=== PATIENT | male | born 1945 | race Caucasian/White ===

== ENCOUNTER → 2018-11-24 | Outpatient (CLI) | payer OTHER ==
[~2018-11-24] MED LIST: ESOM20; METO25ER; OXYACE5T PO
== END | disposition home or self-care (01) ==
LOC: OLS 14:18 → LAB SHORT 14:18
DX: Z79.01 Long term (current) use of anticoagulants (principal); Z51.81 Encounter for therapeutic drug level monitoring; I48.91 Unspecified atrial fibrillation
CPT/HCPCS: 36416; 85610

== ENCOUNTER → 2021-04-04 | Outpatient (CLI) | payer OTHER | END | disposition home or self-care (01) | LOC: LAB SHORT 08:57 | DX: L98.9 Disorder of the skin and subcutaneous tissue, unspecified (principal) | CPT/HCPCS: 88305 ==

== ENCOUNTER 2022-01-18 09:48 | Day surgery (SDC) | payer OTHER ==
[~2022-01-18] VITALS: Ht 175.3 cm; Wt 78.4 kg
[~2022-01-18 09:48] MED LIST changes: +ATORVASTATIN CA20 MG PO; +FINA5 PO; +JANTOVEN5 M2 PO; +METO100ER PO; +OMEP20ER PO; +TAMSULOSIN HCL0.4 M1 PO; +VALSARTAN-HCTZ1 EAC7 PO
== END 2022-01-18 12:01 | disposition home or self-care (01) ==
LOC: ORSCSDS 09:48
PROVIDERS: Ophthalmology
PROC: 08DJ3ZZ Extraction of Right Lens, Percutaneous Approach (ICD-10-PCS; principal; 2022-01-18 11:00)
DX: H25.11 Age-related nuclear cataract, right eye (principal); I10 Essential (primary) hypertension; I48.91 Unspecified atrial fibrillation; K21.9 Gastro-esophageal reflux disease without esophagitis; I25.2 Old myocardial infarction; I25.10 Atherosclerotic heart disease of native coronary artery without angina pectoris; Z79.01 Long term (current) use of anticoagulants; Z79.899 Other long term (current) drug therapy
CPT/HCPCS: J2250; J3010; J3301; J7030; J7040; V2632

== ENCOUNTER 2022-01-25 09:38 | Day surgery (SDC) | payer OTHER ==
[~2022-01-25] VITALS: Ht 175.3 cm; Wt 77.8 kg
--- NOTE | 2022-01-25 10:05 | NUR ---
01/25/22 1005 ROSALBA POSADA T:[id number] P:[id number]
== END 2022-01-25 11:38 | disposition home or self-care (01) ==
LOC: ORSCSDS 09:38
PROVIDERS: Ophthalmology
PROC: 08RK3JZ Replacement of Left Lens with Synthetic Substitute, Percutaneous Approach (ICD-10-PCS; principal; 2022-01-25 11:00)
DX: H25.12 Age-related nuclear cataract, left eye (principal); H52.202 Unspecified astigmatism, left eye; I10 Essential (primary) hypertension; I25.2 Old myocardial infarction; I48.91 Unspecified atrial fibrillation; Z79.01 Long term (current) use of anticoagulants; E78.5 Hyperlipidemia, unspecified; K21.9 Gastro-esophageal reflux disease without esophagitis; N40.0 Benign prostatic hyperplasia without lower urinary tract symptoms; Z79.899 Other long term (current) drug therapy
CPT/HCPCS: J2001; J2250; J3010; J3301; J7120; V2632

== ENCOUNTER 2023-09-20 18:46 | Observation (INO) | payer OTHER ==
[~2023-09-20] VITALS: Ht 175.3 cm; Wt 80.7 kg
[2023-09-20] MEDS ORDERED: NS 1,000 ML IV SCH ×3 (18:55→23:10)
[2023-09-20 19:05] LABS: BASOPHILS ABSOLUTE AUTO 0.05 K/mm3 (0.00-0.23); BASOPHILS PERCENT AUTO 1 % (0-2); EOSINOPHILS ABSOLUTE AUTO 0.09 K/mm3 (0.00-0.68); EOSINOPHILS PERCENT AUTO 1 % (0-6); Hematocrit 35.3 % (37.0-53.0); Hemoglobin 12.3 g/dL (13.5-17.5); IMMATURE GRAN ABSOLUTE AUTO 0.02 K/mm3 (0.00-0.10); IMMATURE GRAN PERCENT AUTO 0 % (0-1); LYMPHOCYTES ABSOLUTE AUTO 2.59 K/mm3 (0.84-5.20); LYMPHOCYTES PERCENT AUTO 37 % (21-46); MONOCYTES ABSOLUTE AUTO 0.53 K/mm3 (0.16-1.47); MONOCYTES PERCENT AUTO 8 % (4-13); Mean Corpuscular HGB 28.7 pg (26.0-34.0); Mean Corpuscular HGB Conc 34.8 g/dL (31.5-36.5); Mean Corpuscular Volume 83 fL (80-100); Mean Platelet Volume 10.2 fL (9.1-12.4); NEUTROPHILS PERCENT AUTO 54 % (41-73); Platelet Count 207 K/mm3 (150-400); RDW Coefficient Variation 13.3 % (11.7-14.2); RDW Standard Deviation 40.3 fL (35.1-46.3); Red Blood Cell Count 4.28 M/mm3 (4.30-5.90); White Blood Cell Count 7.08 K/mm3 (4.00-11.30)
[2023-09-20 19:30] LABS: Albumin, Blood 3.1 g/dL (3.4-5.0); Bilirubin, Total 1.1 mg/dL (0.1-1.0); Bun/Creatinine Ratio 15.9 (12.0-20.0); Calcium, Blood 7.9 mg/dL (8.5-10.1); Creatinine, Blood 1.13 mg/dL (0.60-1.20); Potassium, Blood 2.3 mmol/L (3.5-5.5); Total Protein, Blood 6.1 g/dL (6.4-8.2)
[2023-09-20 19:57] LABS: Calcium, Ionized (POC) 1.05 mmol/L (1.10-1.46); Chloride (POC) 109 mmol/L (98-108); Creatinine (POC) 1.1 mg/dL (0.8-1.3); Glucose (ISTAT POC) 104 mg/dL (70-99); Hemoglobin (POC) 11.6 g/dL (13.5-17.5); Potassium (POC) 2.3 mmol/L (3.5-5.5); Sodium (POC) 144 mmol/L (135-148); Total CO2 (POC) 20 mmol/L (21-32)
[2023-09-20] MEDS ORDERED: Potassium Chl 20MEQ/Water100ML 100 ML IV SCH (20:05)
[2023-09-20] MEDS ORDERED: AMLO10 PO (21:47)
[2023-09-20] MEDS ORDERED: FINA5 PO (21:47)
[2023-09-20] MEDS ORDERED: COLE625 PO (21:48)
[2023-09-20] MEDS ORDERED: CEFD300 PO (21:49)
[2023-09-20] MEDS ORDERED: Ondansetron HCl 2 MG / ML 2ML Vial IV PRN (23:00)
[2023-09-20] MEDS ORDERED: Enoxaparin 40 MG/0.4 ML SYR SC SCH (23:00)
[2023-09-20] MEDS ORDERED: CALCIUM GLUC IN NACL, ISO-OSM 50 ML IV ONE (23:10)
[2023-09-20 23:27] VITALS: BP 130/72
[2023-09-20 23:46] LABS: Magnesium, Blood 1.7 mg/dL (1.6-2.4)
[2023-09-21 00:51] LABS: BASOPHILS ABSOLUTE AUTO 0.05 K/mm3 (0.00-0.23); BASOPHILS PERCENT AUTO 1 % (0-2); EOSINOPHILS ABSOLUTE AUTO 0.03 K/mm3 (0.00-0.68); EOSINOPHILS PERCENT AUTO 0 % (0-6); Hemoglobin 12.7 g/dL (13.5-17.5); IMMATURE GRAN ABSOLUTE AUTO 0.03 K/mm3 (0.00-0.10); IMMATURE GRAN PERCENT AUTO 0 % (0-1); LYMPHOCYTES ABSOLUTE AUTO 2.02 K/mm3 (0.84-5.20); LYMPHOCYTES PERCENT AUTO 22 % (21-46); MONOCYTES ABSOLUTE AUTO 0.73 K/mm3 (0.16-1.47); MONOCYTES PERCENT AUTO 8 % (4-13); Mean Corpuscular HGB 28.3 pg (26.0-34.0); Mean Corpuscular HGB Conc 34.3 g/dL (31.5-36.5); Mean Corpuscular Volume 82 fL (80-100); Mean Platelet Volume 10.4 fL (9.1-12.4); NEUTROPHILS ABSOLUTE AUTO 6.36 K/mm3 (1.96-9.15); NEUTROPHILS PERCENT AUTO 69 % (41-73); Platelet Count 212 K/mm3 (150-400); RDW Coefficient Variation 13.3 % (11.7-14.2); RDW Standard Deviation 40.3 fL (35.1-46.3); Red Blood Cell Count 4.49 M/mm3 (4.30-5.90); White Blood Cell Count 9.22 K/mm3 (4.00-11.30)
[2023-09-21 01:00] LABS: International Normalized Ratio 2.25; Prothrombin Time Results 22.7 Sec (9.7-11.5)
[2023-09-21 01:07] LABS: Albumin, Blood 3.4 g/dL (3.4-5.0); Albumin/Globulin Ratio 1.1 (0.8-1.8); Bilirubin, Total 1.7 mg/dL (0.1-1.0); Bun/Creatinine Ratio 16.6 (12.0-20.0); Calcium, Blood 8.1 mg/dL (8.5-10.1); Creatinine, Blood 0.91 mg/dL (0.60-1.20); Globulin, Blood 3.2 g/dL (2.2-4.0); Potassium, Blood 3.2 mmol/L (3.5-5.5); Total Protein, Blood 6.6 g/dL (6.4-8.2)
--- NOTE | 2023-09-21 01:37 | NUR ---
ASSUMED CARE OF PATIENT UPON HIS ARRIVAL FROM ED AT MIDNIGHT. A&O X 4, PLEASANT AND INDEPENDENT IN ROOM. DENIES PAIN, CP, DIZZINESS. POTASSIUM AND NS INFUSING INTO L ARM IV. EDUCATED PT ABOUT FALL PRECAUTIONS, HIGH RISK R/T SYNCOPAL EPISODE EARLIER, AND TO CALL IF HE FEELS IN ANY WAY UNSAFE TO AMBULATE, TO WHICH HE VERBALIZED UNDERSTANDING. ORIENTED TO ROOM, CALL LIGHT, UNIT ROUTINE, O2 SAFETY.
[2023-09-21 03:53] VITALS: BP 117/70
--- NOTE | 2023-09-21 05:39 | NUR ---
SHIFT SUMMARY: NO ACUTE EVENTS. NO EVENTS ON TELEMETRY, SR 70'S. COMPLETED ALL POTASSIUM INFUSIONS (TOTAL OF 60 MEQ) AND CALCIUM GLUCONATE. DENIED PAIN, CHEST DISCOMFORT, DIZZINESS, AND SOB. WAS EDUCATED ABOUT FALL PRECAUTIONS AND TO CHANGE HIS POSITION SLOWLY WHEN GETTING UP AND IF HE FELT DIZZY TO CALL STAFF FOR ASSISTANCE; VERBALIZED UNDERSTANDING OF ALL. AMBULATED TO WITH STEADY GAIT. IS HOPING TO D/C HOME TODAY.
[2023-09-21 07:51] VITALS: BP 124/76
[2023-09-21] MEDS ORDERED: Tamsulosin HCl 0.4 MG Cap PO SCH (09:00)
[2023-09-21] MEDS ORDERED: Finasteride 5 MG Tab PO SCH (09:00)
[2023-09-21] MEDS ORDERED: AmLODIPine Besylate 5 MG Tab PO SCH (09:00)
[2023-09-21] MEDS ORDERED: Metoprolol Succinate 50 MG TABCR PO SCH (09:00)
[2023-09-21] MEDS ORDERED: Omeprazole 20 MG CapCR PO SCH (09:00)
[2023-09-21 09:04] LABS: Bun/Creatinine Ratio 15.5 (12.0-20.0); Calcium, Blood 8.2 mg/dL (8.5-10.1); Creatinine, Blood 0.84 mg/dL (0.60-1.20); Magnesium, Blood 1.4 mg/dL (1.6-2.4); Potassium, Blood 3.3 mmol/L (3.5-5.5)
[2023-09-21] MEDS ORDERED: Potassium Chloride 20 MEQ TabCR PO ONE (11:45)
[2023-09-21] MEDS ORDERED: Magnesium Sulf 2 GM/Water 50ML 50 ML IV ONE (11:50)
[2023-09-21] MEDS ORDERED: POTCHL20ER PO (13:19)
--- NOTE | 2023-09-21 15:50 | NUR ---
Pt D/C at 1510, VSS, ambulates independently, D/C instructions given, pt refused wheelchair, safety ensured.
[2023-09-21] MEDS ORDERED: Warfarin Sodium 5 MG Tab PO ONE (18:00)
== END 2023-09-21 15:30 | disposition home or self-care (01) ==
LOC: ER 18:46 → MEDS 18:47
PROVIDERS: Emergency Medicine; Internal Medicine; ADMIT Internal Medicine
DX: R55 Syncope and collapse (principal); E87.6 Hypokalemia; E83.42 Hypomagnesemia; I48.91 Unspecified atrial fibrillation; I10 Essential (primary) hypertension; E78.5 Hyperlipidemia, unspecified; K21.9 Gastro-esophageal reflux disease without esophagitis; Z79.01 Long term (current) use of anticoagulants; Z79.899 Other long term (current) drug therapy
CPT/HCPCS: 36415; 80047; 80048; 80053; 83735; 83880; 84484; 85014; 85025; 85610; 93005; 93010; 96361; 96365; 96366; 96374; 96375; 96376; 99285-25; A9270; G0378; J0612; J3475; J3480; J7030; J7050